=== PATIENT | female | born 1955 | race Asian ===

== ENCOUNTER 2021-03-23 18:21 | Emergency (ER) | payer OTHER ==
[~2021-03-23] VITALS: Ht 160 cm; Wt 63.5 kg
[2021-03-23 18:51] VITALS: BP 160/83
[2021-03-23] MEDS ORDERED: HYDROcodone-ACET 5/325MG TAB PO ONE (19:00)
== END 2021-03-23 19:58 | disposition home or self-care (01) ==
LOC: ER 18:25
DX: G44.209 Tension-type headache, unspecified, not intractable (principal); I10 Essential (primary) hypertension; E11.9 Type 2 diabetes mellitus without complications; E03.9 Hypothyroidism, unspecified; Z90.89 Acquired absence of other organs
CPT/HCPCS: 70450